=== PATIENT | male | born 1945 | race Two or more races ===

== ENCOUNTER 2021-03-27 00:11 | Inpatient (IN) | payer OTHER ==
[~2021-03-27] VITALS: Ht 162.6 cm; Wt 78.0 kg
--- NOTE | 2021-03-27 00:33 | NUR ---
PTE ALERTA CON RICHARD ALZHEIMER EN AMBULANCIA EN COMPANIA DE PARAMEDICOS. LOS CUALES REFIEREN QUE EL PTE ES TRAN[facility]ERIDO [facility].PTE SE UBICA EN NICHOLE CON BARANDAS ELEVADAS. PTE CANALIZADO EN JOÃOO TWIN ANGIO [address] NATHANIEL DE EDEMA Y DE ENROJECIMIENTO.PTE CON NAYELY DRENANDO 100ML DE ORINA COLOR AMARILLO INTENSO.
--- NOTE | 2021-03-27 01:27 | NUR ---
PTE EVALUADO POR EL DR RAKESH MONDRAGONIEN ORDENA ELTX. SE ORIENTA SOBRE LE MISMO, LO CUAL FAMILIAR (HIJO) REFIERE ENTENDER. SE REALIZAN PRUEBAS DE LABORATORIO Y SE ADMINISTRAN MEDICAMENTOS [facility] ORDEN MEDICA Y SIGUIENDO MEDIDAS ASEPTICAS. ABG NOTIFICADOS A CHUY. JLUIS X NOTIFICADOS A PERSONAL DE TURNO.
--- NOTE | 2021-03-27 07:12 | NUR ---
SE RECIBE PTE ALERTA Y ORIENTADO POR 3 UBICADO EN NICHOLE CON BARANDAS ELEVADA Y TIMBRE ACCESIBLE VENOPUNCION PATENTE Y NATHANIEL DE EDEMA, NO PRESENTA DOLOR AL MOMENTO PTE SE MANTIENE EN OBSERVACION Y BAJO TRATAMIENTO. PTE EN ESPERA DEL DR MARGARITO GERMAN PTE CON ADLER DRENADO ORINA DE COLOR AMARILLO.
[2021-03-31] MEDS ORDERED: DONEPEZIL HCL23 MG (11:33)
[2021-03-31] MEDS ORDERED: RAMIPRIL1.25 MG (11:34)
[2021-03-31] MEDS ORDERED: BREO ELLIPTA I1 EACH (11:34)
[2021-03-31] MEDS ORDERED: METFORMIN HCL500 M4 (11:34)
[2021-03-31] MEDS ORDERED: MEMANTINE HCL10 MG (11:34)
[2021-03-31] MEDS ORDERED: TAMSULOSIN HCL0.4 MG (11:34)
[2021-03-31] MEDS ORDERED: SYNTHROID100 MCG (11:34)
[2021-03-31] MEDS ORDERED: ALZ SR CAPLET1 EACH (11:34)
[2021-03-31] MEDS ORDERED: ATORVASTATIN CA20 MG (11:34)
[2021-04-05] MEDS ORDERED: CIPRO500 MG PO (10:51)
[2021-04-05] MEDS ORDERED: FLAGYL375 MG PO (10:52)
== END 2021-04-05 14:39 | disposition home or self-care (01) | DRG 392 ==
LOC: ER 00:11 → SEC-K 15:25 → O/R 03-28 10:32 → SEC-K 03-28 10:34 → SURH 03-28 21:20
PROVIDERS: ADMIT Surgery; ATTEND Surgery
PROC: 4A033R1 Measurement of Arterial Saturation, Peripheral, Percutaneous Approach (ICD-10-PCS; principal; 2021-03-27)
PROC: 3E0F7GC Introduction of Other Therapeutic Substance into Respiratory Tract, Via Natural or Artificial Opening (ICD-10-PCS; 2021-03-28)
PROC: 02HV33Z Insertion of Infusion Device into Superior Vena Cava, Percutaneous Approach (ICD-10-PCS; 2021-03-29)
PROC: BW2110Z Computerized Tomography (CT Scan) of Abdomen and Pelvis using Low Osmolar Contrast, Unenhanced and Enhanced (ICD-10-PCS; 2021-04-01)
DX: K57.32 Diverticulitis of large intestine without perforation or abscess without bleeding (principal); N32.1 Vesicointestinal fistula; N39.0 Urinary tract infection, site not specified; E11.9 Type 2 diabetes mellitus without complications; G30.8 Other Alzheimer's disease; E03.8 Other specified hypothyroidism; Z20.822 Contact with and (suspected) exposure to COVID-19; Z79.4 Long term (current) use of insulin; E78.5 Hyperlipidemia, unspecified; J45.909 Unspecified asthma, uncomplicated